=== PATIENT | male | born 1990 | race Caucasian/White ===

== ENCOUNTER → 2019-09-25 | Outpatient (REF) | payer BC ==
[2019-09-25 18:08] LABS: C REACTIVE PROTEIN QUANTITATIV < 0.30 MG/DL (0.00-0.30)
[2019-09-26 11:45] LABS: VITAMIN B12 LEVEL 630 PG/ML (247-911)
== END ==
LOC: M LABDRAWC 16:09
DX: R26.89 Other abnormalities of gait and mobility (principal)

== ENCOUNTER → 2020-01-02 | Emergency (ER) | payer BC, SELFPAY ==
[~2020-01-02] MED LIST: KETOROLAC TROMETHAMINE 10 MG TAB ONE
[2020-03-02 09:34] LABS: CHLAMYDIA DNA AMPLIFICATION NEGATIVE (NEGATIVE); GC DNA AMPLIFICATION NEGATIVE (NEGATIVE)
== END | disposition home or self-care (01) ==
LOC: M ED 17:12
DX: N50.811 Right testicular pain (principal); Z88.2 Allergy status to sulfonamides